=== PATIENT | female | born 1995 | race African-American/Black ===

== ENCOUNTER 2017-10-20 13:34 | Emergency (ER) | payer MEDICARE ==
[~2017-10-20] VITALS: Ht 162.6 cm; Wt 65.3 kg
[2017-10-20 14:08] LABS: BILIRUBIN,URINE NEGATIVE (NEGATIVE); CLARITY,URINE SL CLOUDY (CLEAR); COLOR,URINE YELLOW (YELLOW); KETONES,URINE NEGATIVE (NEGATIVE); LEUKOCYTE ESTERASE ,URINE 1+ (NEGATIVE); NITRITE,URINE NEGATIVE (NEGATIVE); PROTEIN,URINE DIPSTICK NEGATIVE (NEGATIVE); URINE UROBILINOGEN 0.2 mg/dL (0.2 - 1)
[2017-10-20 14:18] LABS: BACTERIA,URINE FEW /HPF; EPITHELIAL CELLS,URINE MODERATE /LPF; RBC,URINE 0-5 /HPF (0-5)
[2017-10-20] MEDS ORDERED: CEFTRIAXONE SOD 1 GM VIAL IV ONE (15:00)
[2017-10-20 15:05] LABS: BASOPHILS % 0.4 % (0.0-1.0); EOSINOPHILS # (AUTO) 0.1 (0.0-0.4); EOSINOPHILS % 0.5 % (0.0-6.0); HEMATOCRIT 37.3 % (34.2-44.1); HEMOGLOBIN 12.7 g/dL (12.0-16.0); LYMPHOCYTES # (AUTO) 2.7 (1.0-3.2); LYMPHOCYTES % 29.1 % (18.0-39.1); MEAN CORPUSCULAR HEMOGLOBIN 26.2 pg (28-32); MEAN CORPUSCULAR VOLUME 76.9 fL (81-99); MONOCYTES # (AUTO) 0.7 (0.2-0.8); MONOCYTES % 7.9 % (4.4-11.3); NEUTROPHILS # (AUTO) 5.8 (2.1-6.9); NEUTROPHILS % 61.8 % (38.7-80.0); PLATELET COUNT 360 x10e3/uL (140-360); RED BLOOD COUNT 4.85 x10e6/uL (3.6-5.1); RED CELL DISTRIBUTION WIDTH 16.1 % (11.7-14.4)
[2017-10-20 15:19] LABS: ALANINE AMINOTRANSFERASE 10 IU/L (0-55); ALBUMIN 3.7 g/dL (3.5-5.0); ALBUMIN/GLOBULIN RATIO 0.8 (0.8-2.0); ALKALINE PHOSPHATASE 61 IU/L (40-150); ANION GAP 13.5 mmol/L (8-16); BLOOD UREA NITROGEN 7 mg/dL (7-26); BUN/CREATININE RATIO 10 (6-25); CALCIUM 9.5 mg/dL (8.4-10.2); CARBON DIOXIDE 19 mmol/L (22-29); CHLORIDE 106 mmol/L (98-107); CREATININE, SERUM 0.69 mg/dL (0.57-1.11); EST GLOMERULAR FILTRATION RATE > 60 ML/MIN (60-); GLUCOSE 80 mg/dL (74-118); POTASSIUM 3.5 mmol/L (3.5-5.1); SODIUM 135 mmol/L (136-145)
[2017-10-20 15:41] LABS: HCG,QUANTITATIVE 86794.13 mIU/mL (0-10)
--- NOTE | 2017-10-20 16:38 | Diagnostic Imaging Report ---
PROCEDURE:TRANSVAGINAL OBSTETRIC ULTRASOUND, FIRST TRIMESTER COMPARISON:None. INDICATIONS:Rule Out Ectopic TECHNIQUE:Limited sonographic examination for obstetrical and evaluation FINDINGS: UTERUS: The uterus measures 11.4 x 6.9 x 8.1 cm and is anteverted. OVARIES: The right ovary measures 3.5 x 2.1 x 2.1 cm. No suspicious right adnexal masses. Left ovary measures 2.8 x 1.6 x 1.9 cm. No suspicious left adnexal masses. NUMBER:Single. CARDIAC ACTIVITY:176 bpm CLINICAL GA:10 weeks, 3 days CLINICAL DENNY:05/15/2018 ULTRASOUND GA:10 weeks, one day ULTRASOUND DENNY: 05/17/2018 CONCLUSION: Single viable intrauterine . Dictated by: Gaudencio Dean M.D. on 10/20/2017 at 16:39 Electronically approved by: Gaudencio Dean M.D. on 10/20/2017 at 16:39
[2017-10-20 17:29] VITALS: BP 124/76
== END 2017-10-20 17:25 | disposition home or self-care (01) ==
LOC: ER 13:34
DX: O20.9 Hemorrhage in early pregnancy, unspecified (principal); O20.0 Threatened abortion; N30.90 Cystitis, unspecified without hematuria
CPT/HCPCS: 36415; 76817; 80053; 81001; 81025; 84702; 85025; 86850; 86900; 99284; J0696